=== PATIENT | male | born 1970 | race Caucasian/White ===

== ENCOUNTER 2022-01-19 10:44 | Emergency (ER) | payer OTHER ==
[2022-01-19] MEDS ORDERED: HYDROmorphone 1 MG/ML Syringe IM ONE (11:05)
[2022-01-19] MEDS ORDERED: Sodium Chloride 0.9% 10 ML Syringe FLUSH PRN (11:56)
[2022-01-19] MEDS ORDERED: Ketorolac 30 MG/ML SDV IVPUSH ONE (11:57)
== END 2022-01-19 13:37 | disposition home or self-care (01) ==
LOC: JP.ED 10:44
DX: S22.31XA Fracture of one rib, right side, initial encounter for closed fracture (principal); J93.9 Pneumothorax, unspecified; I10 Essential (primary) hypertension; Z79.899 Other long term (current) drug therapy; W20.8XXA Other cause of strike by thrown, projected or falling object, initial encounter
CPT/HCPCS: 71046; 71250; 96372; 96374; 99284; J1170; J1885; J3490